=== PATIENT | male | born 1960 | race Caucasian/White ===

== ENCOUNTER 2017-04-28 07:51 | Day surgery (SDC) | payer OTHER ==
[~2017-04-28] VITALS: Ht 188 cm; Wt 90.7 kg
[2017-04-28 08:22] VITALS: BP 136/78
[2017-04-28 12:25] VITALS: BP 151/87
== END 2017-04-28 12:15 | disposition home or self-care (01) ==
LOC: GI 07:51 → OR 11:00 → GI 12:15
PROVIDERS: Internal Medicine Gastroenterology
PROC: 0DJD8ZZ Inspection of Lower Intestinal Tract, Via Natural or Artificial Opening Endoscopic (ICD-10-PCS; principal; 2017-04-28 09:30)
DX: Z12.11 Encounter for screening for malignant neoplasm of colon (principal); K57.30 Diverticulosis of large intestine without perforation or abscess without bleeding; Q43.8 Other specified congenital malformations of intestine; K63.89 Other specified diseases of intestine; K64.8 Other hemorrhoids
CPT/HCPCS: 45378; J1200; J1610; J2250; J2310; J3010; J3490